=== PATIENT | female | born 1985 | race Caucasian/White ===

== ENCOUNTER 2022-04-14 08:45 | Observation (INO) ==
[~2022-04-14 08:45] MED LIST: ANCEF VIAL 1 GRAM ONE; NS 1,000 ML IV 1,000 ML ONE; NS 100 ML IV 100 ML ONE
[2022-04-14] MEDS ORDERED: LR 1,000 ML IV 1,000 ML IV ONE (09:00)
[2022-04-14] MEDS ORDERED: DUONEB 0.5 MG/3 MG (3 mL) NEB ONE ×2 (09:02→09:04)
[2022-04-14] MEDS ORDERED: DILAUDID INJ ONE (09:10)
[2022-04-14] MEDS: DILAUDID INJ IVP PRN ×5 (09:15→23:56)
[2022-04-14 09:28] VITALS: BMI 27.3
[2022-04-14] MEDS ORDERED: BARHEMSYS INJ IVP ONE (09:40)
[2022-04-14] MEDS ORDERED: BARHEMSYS INJ ONE (09:44)
[2022-04-14] MEDS ORDERED: BYFAVO INJ IVP ONE (12:07)
[2022-04-14] MEDS ORDERED: DECADRON INJ ONE (13:57)
[2022-04-14] MEDS ORDERED: DIPRIVAN VIAL 20 ML ONE (13:57)
[2022-04-14] MEDS ORDERED: PEPCID 20 MG VIAL ONE (13:57)
[2022-04-14] MEDS ORDERED: ZOFRAN INJ 4 MG VIAL ONE (13:57)
[2022-04-14] MEDS ORDERED: MARCAINE 0.25% INJ ONE (14:18)
[2022-04-14] MEDS ORDERED: ROBINUL ONE (14:46)
[2022-04-14] MEDS ORDERED: NS 500 ML IV 500 ML IV ONE (17:36)
[2022-04-14] MEDS ORDERED: ZOFRAN INJ 4 MG VIAL IVP PRN ×2 (17:50→17:52)
[2022-04-14] MEDS ORDERED: PHENERGAN INJ 25 MG IM PRN (17:50)
[2022-04-14] MEDS ORDERED: BENADRYL INJ 50 MG VIAL IVP PRN (17:50)
[2022-04-14] MEDS ORDERED: BARHEMSYS INJ IVP PRN (17:50)
[2022-04-14] MEDS ORDERED: DILAUDID INJ IVP PRN (17:50)
[2022-04-14] MEDS ORDERED: REGLAN INJ 10 MG VIAL IVP PRN (17:50)
[2022-04-14] MEDS ORDERED: TYLENOL 325 MG TAB PO PRN (17:52)
[2022-04-14] MEDS ORDERED: GLUCOPHAGE ONE (20:02)
[2022-04-14] MEDS: PERCOCET TAB 5/325 MG PO PRN (21:00)
[2022-04-14] MEDS: ABILIFY PO SCH (21:10)
[2022-04-14] MEDS: COLACE CAP 100 MG PO SCH (21:10)
[2022-04-14] MEDS: COREG TAB 6.25 MG PO SCH (21:10)
[2022-04-14] MEDS: GLUCOPHAGE PO SCH (21:10)
[2022-04-14] MEDS: TOPAMAX PO SCH (21:11)
[2022-04-14] MEDS: LYRICA CAP 150 mg PO SCH (21:11)
[2022-04-14] MEDS: VARENICLINE 0.5 MG PO SCH (21:12)
[2022-04-15] MEDS: PERCOCET TAB 5/325 MG PO PRN ×5 (03:26→21:50)
[2022-04-15 05:35] LABS: BLOOD UREA NITROGEN 9 mg/dL (7-18); CALCIUM 8.7 mg/dL (8.5-10.1); CARBON DIOXIDE 24.4 mmol/L (21-32); CHLORIDE 105 mmol/L (98-107); COR NA(FOR HYPERGLY) 138 mmol/L (136-145); CREATININE 0.66 mg/dL (0.55-1.02); SODIUM 137 mmol/L (136-145); eGFR NON BLACK RACES > 60 (>60)
[2022-04-15] MEDS: DILAUDID INJ IVP PRN ×4 (05:58→18:58)
[2022-04-15] MEDS ORDERED: GLUCOPHAGE ONE ×2 (08:17→20:25)
[2022-04-15] MEDS ORDERED: ZOLOFT ONE (08:18)
[2022-04-15] MEDS: NICOTINE PATCH TD SCH (08:37)
[2022-04-15] MEDS: COREG TAB 6.25 MG PO SCH ×2 (08:38→21:50)
[2022-04-15] MEDS: ZOLOFT PO SCH (08:38)
[2022-04-15] MEDS: LOVENOX INJ 40 MG SYR SC SCH (08:39)
[2022-04-15] MEDS: TOPAMAX PO SCH ×2 (08:39→21:50)
[2022-04-15] MEDS: LYRICA CAP 150 mg PO SCH ×2 (08:39→21:50)
[2022-04-15] MEDS: GLUCOPHAGE PO SCH ×2 (08:39→21:50)
[2022-04-15] MEDS: VARENICLINE 0.5 MG PO SCH ×2 (08:41→22:27)
[2022-04-15] MEDS ORDERED: ROBITUSSIN (PLAIN) PO PRN (09:26)
--- NOTE | 2022-04-15 09:43 | PCM.PROG ---
Progress Note Progress Note for Day of Date of Exam: 04/15/22 Subjective Subjective: Mrs. Griffin is a 36 year old female who is s/p right hardware removal with ankle and STJ fusion, DOS was 04/14. Patient is doing well with no issues over night. She rates her pain at 5/10 prior to the Percocet and 3/10 afterwards. The patient is minimally elevating her foot. She denies any f /c/n/v/sob/calf pain. Past Medical Family Social History Allergies: Allergies No Known Drug Allergies Allergy (Verified 04/14/22 08:58) Vital Signs and I&O's Vital Signs: Temperature 97.3 F Pulse Rate [Brachial] 57 Pulse Rate 60 Respiratory Rate 18 Blood Pressure [Left Arm] 124/70 Blood Pressure 108/56 O2 Sat by Pulse Oximetry 100 Intake and Output: Intake & Output 04/12/22 04/13/22 04/14/22 04/15/22 23:59 23:59 23:59 23:59 Intake Total 4600 / 4600 3255 / 3255 Output Total 2350 / 2350 Balance 2250 / 2250 3255 / 3255 Physical Exam Skin: Other (The dressing are intact and clean with some strike through at the medial aspect of the ankle. The right foot skin incision is well coapted with the sutures intact. No active bleeidng. No erythema and very minimal edema. ) Mood Description: Calm and Appropriate Speech Pattern: Clear and Appropriate Laboratory and Diagnostics Result Diagrams: 04/15/22 04:48 Labs: Laboratory Sodium 137 mmol/L (136-145) 04/15/22 04:48 Corrected Sodium 138 mmol/L (136-145) 04/15/22 04:48 Potassium 4.0 mmol/L (3.5-5.1) 04/15/22 04:48 Chloride 105 mmol/L (98-107) 04/15/22 04:48 Carbon Dioxide 24.4 mmol/L (21-32) 04/15/22 04:48 BUN 9 mg/dL (7-18) 04/15/22 04:48 Creatinine 0.66 mg/dL (0.55-1.02) 04/15/22 04:48 Est GFR (MDRD) Af Amer > 60 (>60) 04/15/22 04:48 Est GFR (MDRD) Non-Af > 60 (>60) 04/15/22 04:48 Glucose 144 mg/dL (65-99) H 04/15/22 04:48 POC Glucose (mg/dL) 143 mg/dL (65-99) H 04/14/22 21:02 Calcium 8.7 mg/dL (8.5-10.1) 04/15/22 04:48 SARS-CoV-2 (PCR) Negative (NEGATIVE) 04/14/22 08:55 Plan (1) Traumatic arthritis of right ankle: Status: Acute (2) Contracture of right ankle: Status: Acute Narrative Support Text: Mrs. Griffin is a 36 yo female who is s/p right foot surgery, DOS was 04/14. She is doing well with the pain is well controlled. She is with VSS and NAD. No leukocytosis. Slight strike through at the medial ankle. Plan: The right LE dressing was changed with 4x4, cast padding, abds, with posterior splint and donald. NWB on the right. She is to keep the dressing intact. Her first dressing change will be when she follows up with Dr. Roy in [facility]. She is to follow up in one week with Dr. Roy Rx's in the chart. PT evaluation She will need to elevate her right lower extremity x 2 pillows. Please do not hesitate to call me with any questions or concerns Ray [place] DPM fellow [phone]
[2022-04-15] MEDS: FLONASE NASAL SPRAY ENOSTRIL SCH (09:47)
[2022-04-15] MEDS: COLACE CAP 100 MG PO SCH (21:50)
[2022-04-15] MEDS: ABILIFY PO SCH (21:50)
[2022-04-16] MEDS: DILAUDID INJ IVP PRN ×3 (00:08→10:59)
[2022-04-16 05:54] LABS: BASOPHILS % (AUTO) 0.4 % (0.2-1.0); EOSINOPHILS % (AUTO) 0.3 % (0.9-2.9); HEMATOCRIT 34.7 % (36.0-47.0); HEMOGLOBIN 11.9 g/dL (12.0-16.0); LYMPHOCYTES # (AUTO) 1.3 X10^3/uL (1.3-2.9); LYMPHOCYTES % (AUTO) 15.1 % (21.0-51.0); MEAN CORPUSCULAR HEMOGLOBIN 29.9 pg (27.0-34.0); MEAN CORPUSCULAR HGB CONC 34.2 g/dL (33.0-35.0); MEAN CORPUSCULAR VOLUME 87.4 fL (80.0-100.0); MEAN PLATELET VOLUME 10.4 fL (7.4-11.0); MONOCYTES # (AUTO) 0.6 x10^3/uL (0.3-0.8); MONOCYTES % (AUTO) 6.6 % (0.0-13.0); NEUTROPHILS # (AUTO) 6.5 x10^3/uL (2.2-4.8); NEUTROPHILS % (AUTO) 77.6 % (42.0-75.0); RED BLOOD COUNT 3.96 X10^6/uL (3.5-5.4); RED CELL DISTRIBUTION WIDTH 13.3 % (11.6-16.5); WHITE BLOOD COUNT 8.4 X10^3/uL (3.6-10.0)
[2022-04-16 06:06] LABS: ALANINE AMINOTRANSFERASE 15 Units/L (12-78); ALBUMIN 3.2 g/dL (3.4-5.0); ALKALINE PHOSPHATASE 84 Units/L (46-116); ASPARTATE AMINO TRANSFERASE 9 Units/L (15-37); BLOOD UREA NITROGEN 7 mg/dL (7-18); CALCIUM 8.2 mg/dL (8.5-10.1); CHLORIDE 104 mmol/L (98-107); COR CA(FOR HYPOALB) 8.8 mg/dL (8.5-10.1); CREATININE 0.55 mg/dL (0.55-1.02); SODIUM 137 mmol/L (136-145); TOTAL PROTEIN 6.3 g/dL (6.4-8.2); eGFR NON BLACK RACES > 60 (>60)
[2022-04-16] MEDS ORDERED: GLUCOPHAGE ONE (08:06)
[2022-04-16] MEDS ORDERED: ZOLOFT ONE (08:07)
[2022-04-16] MEDS: TOPAMAX PO SCH (08:23)
[2022-04-16] MEDS: NICOTINE PATCH TD SCH (08:23)
[2022-04-16] MEDS: ZOLOFT PO SCH (08:24)
[2022-04-16] MEDS: PERCOCET TAB 5/325 MG PO PRN (08:24)
[2022-04-16] MEDS: COREG TAB 6.25 MG PO SCH (08:24)
[2022-04-16] MEDS: LOVENOX INJ 40 MG SYR SC SCH (08:25)
[2022-04-16] MEDS: GLUCOPHAGE PO SCH (08:25)
[2022-04-16] MEDS: LYRICA CAP 150 mg PO SCH (08:25)
[2022-04-16] MEDS: FLONASE NASAL SPRAY ENOSTRIL SCH (08:29)
[2022-04-16] MEDS: VARENICLINE 0.5 MG PO SCH (08:29)
[2022-04-16 12:34] VITALS: BP 118/69
[2022-04-16] MEDS ORDERED: TORADOL 30 MG VIAL IVP PRN (14:26)
[2022-04-16] MEDS ORDERED: PERCOCET TAB 5/325 MG PO PRN (14:32)
== END 2022-04-16 15:40 | disposition home or self-care (01) ==
LOC: MED/SURG → EDUNIT# 08:45
PROVIDERS: ADMIT Obstetrics & Gynecology Obstetrics; ATTEND Obstetrics & Gynecology Obstetrics
PROC: HARDREM (ICD-10-PCS; 2022-04-14 09:00)
DX: M21.961 Unspecified acquired deformity of right lower leg; E11.65 Type 2 diabetes mellitus with hyperglycemia; M24.571 Contracture, right ankle; Z20.822 Contact with and (suspected) exposure to COVID-19; M19.171 Post-traumatic osteoarthritis, right ankle and foot; T84.84XA Pain due to internal orthopedic prosthetic devices, implants and grafts, initial encounter